=== PATIENT | female | born 1945 | race Two or more races ===

== ENCOUNTER 2019-09-24 08:25 | Outpatient (CLI) | payer OTHER | END 2019-09-24 08:30 | disposition home or self-care (01) | LOC: SONOGRAMA 08:25 | DX: E04.1 Nontoxic single thyroid nodule (principal) ==

== ENCOUNTER 2022-07-15 09:03 | Outpatient (CLI) | payer OTHER | END 2022-07-15 09:05 | disposition home or self-care (01) | LOC: SONOGRAMA 09:03 | PROVIDERS: ATTEND Pathology Anatomic Pathology & Clinical Pathology | DX: E04.2 Nontoxic multinodular goiter (principal) ==

== ENCOUNTER 2023-01-31 09:36 | Outpatient (CLI) | payer OTHER | END 2023-01-31 09:38 | disposition home or self-care (01) | LOC: SONOGRAMA 09:36 | PROVIDERS: ATTEND Pathology Anatomic Pathology & Clinical Pathology | DX: D34 Benign neoplasm of thyroid gland (principal); E06.5 Other chronic thyroiditis; E04.9 Nontoxic goiter, unspecified ==